=== PATIENT | female | born 1950 | race Caucasian/White ===

== ENCOUNTER → 2017-08-08 | Outpatient (CLI) | payer OTHER, MEDICARE ==
[~2017-08-08] MED LIST: ATOR40TA59 PO; CA C1TAB36 PO; ESOM40CA PO; LISI10TA2 PO; MELA1CAP3 PO; MULT400C3 PO; ZOLP10TA PO
--- NOTE | 2017-08-08 16:01 | RAD ---
Left wrist, 4 views, 08/08/2017: History: Thumb pain and wrist locking There is patchy bony demineralization. No fracture or dislocation is identified. There or mild scattered degenerative changes including the first CMC joint. No erosive changes are seen. There appears to be mild soft tissue swelling about the wrist. IMPRESSION: 1. Mild degenerative change. 2. No acute bony abnormality is detected.
== END | disposition home or self-care (01) ==
LOC: DXRADRC 08:32
PROVIDERS: ATTEND Nurse Practitioner Family
DX: M18.9 Osteoarthritis of first carpometacarpal joint, unspecified (principal)
CPT/HCPCS: 73110

== ENCOUNTER → 2018-03-28 | Outpatient (CLI) | payer MEDICARE, OTHER ==
--- NOTE | 2018-03-28 12:07 | RAD ---
EXAM: Abdomen sonogram complete. HISTORY: Elevated liver enzymes laboratory values. TECHNIQUE: Sonographic imaging of the abdomen was performed. COMPARISON: CT dated 11/19/2015. FINDINGS: The liver is normal in size. There is a 1.2 cm cyst within the liver. No suspicious hepatic lesion is seen. The liver parenchyma is slightly echogenic. The gallbladder is unremarkable. The common bile duct is normal in caliber. The kidneys are normal in size. There is no hydronephrosis. The pancreas, spleen, aorta and inferior vena cava are unremarkable. IMPRESSION: 1. Slightly echogenic liver parenchyma suggesting hepatic steatosis. 2. 1.2 cm hepatic cyst. 3. Otherwise, unremarkable abdomen sonogram. Electronically signed by: Barbara Blackman MD (03/28/2018 12:04 PM) [id number]
== END | disposition home or self-care (01) ==
LOC: US 10:47
PROVIDERS: ATTEND Internal Medicine Gastroenterology
DX: K76.89 Other specified diseases of liver (principal)
CPT/HCPCS: 76700; 82977

== ENCOUNTER → 2021-05-06 | Outpatient (CLI) | payer MEDICARE, OTHER ==
[~2021-05-06] MED LIST changes: +LISI10TA16 PO; -LISI10TA2 PO
--- NOTE | 2021-05-11 18:03 | RAD ---
DATE: 05/06/2021 EXAM: MAMMO WILFRID SCREENING BILATERAL HISTORY: Screening COMPARISON: 06/10/2016, 06/02/2017, 07/13/2018, 07/24/2019 This study was interpreted with the benefit of Computerized Aided Detection (CAD). Breast Density: HETERO The breast parenchyma is heterogenously dense, which could reduce sensitivity of mammography. Breast parenchyma level C. FINDINGS: Multiple bilateral benign-appearing masses are unchanged or decreased in size from 2016. Bilateral benign-appearing calcifications are unchanged. There are no suspicious masses, suspicious calcifications, or architectural distortion. IMPRESSION: No evidence of malignancy. BI-RADS CATEGORY: 2 BENIGN FINDING(S) RECOMMENDED FOLLOW-UP: 12M 12 MONTH FOLLOW-UP PQRS compliance statement: Patient information was entered into a reminder system with a target due date for the next mammogram. Mammography is a sensitive method for finding small breast cancers, but it does not detect them all and is not a substitute for careful clinical examination. A negative mammogram does not negate a clinically suspicious finding and should not result in delay in biopsying a clinically suspicious abnormality. "Our facility is accredited by the [employer] Mammography Program."
== END ==
LOC: MAMMO 07:46
PROVIDERS: ATTEND Physician Assistant Medical
DX: Z12.31 Encounter for screening mammogram for malignant neoplasm of breast (principal)
CPT/HCPCS: 77063; 77067

== ENCOUNTER → 2021-07-23 | Outpatient (CLI) | payer MEDICARE, OTHER ==
--- NOTE | 2021-07-23 12:32 | RAD ---
EXAM: DUAL ENERGY X-RAY ABSORPTIOMETRY (DEXA). HISTORY: Postmenopausal screening. FINDINGS: The lowest measured T-score is -2.1 in the right femoral neck, based on a bone mineral dens ity of 0.745 g/cm^2. Refer to the worksheets for full detail. No comparison examinations are available. IMPRESSION: 1. Low bone mass. Bone mineral density yields a T-score between -1.0 and -2.5. Fracture risk is incre ased. 2. FRAX report: Not calculated. METHODOLOGY: Dual energy x-ray absorptiometry was performed to measure bone mineral density. The foll owing analysis is based on the 2019 Official Positions of the International Society for Clinical Dens itometry: Measurements of the hips and the average of L1-L4 are preferred. When the spine and/or hip cannot be feasibly measured or interpreted, or in the setting of hyperparathyroidism, distal radial bone minera l density may be measured. The lumbar spine T-score is based on the average bone mineral density of L1-L4. In the setting of art ifact or anatomic abnormality, some lumbar levels may be excluded, and the remaining levels used for calculation. A single lumbar level is not used for diagnosis, and if only a single level is available for assessment, another anatomic site will be used to assign a diagnosis. The hip T-score is based on the bone mineral density measurement of the femoral neck or total proxima l femur of either side, whichever is lowest. Bilateral mean values are not used for diagnosis. The forearm T-score is derived from 33% of the distal radius of the nondominant forearm. Electronically signed by: Barbara Blackman MD (07/23/2021 12:30 PM) [id number]
== END ==
LOC: DXRAD 10:39
PROVIDERS: ATTEND Obstetrics & Gynecology
DX: M85.88 Other specified disorders of bone density and structure, other site (principal)
CPT/HCPCS: 77080

== ENCOUNTER → 2022-03-30 | Outpatient (CLI) | payer MEDICARE, OTHER ==
--- NOTE | 2022-03-30 09:30 | RAD ---
EXAM: Lumbar spine, 5 views. HISTORY: Pain. COMPARISON: None. FINDINGS: 5 views of the lumbar spine are obtained. There is 5 mm grade 1 anterolisthesis of L5 on S1 and 2 mm grade 1 anterolisthesis of L4 on L5. There is multilevel endplate remodeling. There is ante rior endplate osteophytosis at the lower thoracic and upper lumbar levels. There is facet arthropathy primarily at the lower lumbar levels. No pars defect is seen. IMPRESSION: 1. Multilevel degenerative change, described in detail above. 2. Mild grade 1 anterolisthesis at the lower lumbar levels. Electronically signed by: Barbara Blackman MD (03/30/2022 9:28 AM) [id number]
== END ==
LOC: RAD 08:53
PROVIDERS: ATTEND Physician Assistant Medical
DX: M47.816 Spondylosis without myelopathy or radiculopathy, lumbar region (principal); M43.17 Spondylolisthesis, lumbosacral region; M54.40 Lumbago with sciatica, unspecified side
CPT/HCPCS: 72110